=== PATIENT | female | born 1950 | race Caucasian/White ===

== ENCOUNTER → 2021-08-08 | Outpatient (CLI) | payer MEDICARE, OTHER | LOC: WOUNDCARE 13:09 | PROVIDERS: ATTEND Family Medicine | DX: L89.153 Pressure ulcer of sacral region, stage 3 (principal); L22 Diaper dermatitis; E11.622 Type 2 diabetes mellitus with other skin ulcer; E11.65 Type 2 diabetes mellitus with hyperglycemia; L03.317 Cellulitis of buttock; E44.0 Moderate protein-calorie malnutrition | CPT/HCPCS: 11042; A6197; A6212; G0463 ==

== ENCOUNTER → 2021-08-08 | Outpatient (CLI) | payer MEDICARE, OTHER ==
--- NOTE | 2021-08-08 16:03 | Diagnostic Imaging Report ---
INDICATION: Decubitus ulcers of the pelvis COMPARISON: None. FINDINGS: Frontal and lateral radiographic views of the sacrum and coccyx were obtained. SI joints are symmetric. Alignment is preserved. There is a large lucency involving the posterior soft tissues best visualized on the lateral view. This may correspond to decubitus ulcer. There is also very subtle lucency projecting over the lower sacrum. This may be on the basis of soft tissue gas as well. Area of osteolysis cannot be excluded. No unexpected radiopaque foreign bodies are seen. IMPRESSION: 1. Soft tissue gas versus area of osteolysis of the lower sacrum. Correlation with MRI is recommended. Dictated by: Dictated on workstation # [id number]
== END ==
LOC: RAD 14:47
PROVIDERS: ATTEND Family Medicine
DX: L89.153 Pressure ulcer of sacral region, stage 3 (principal)
CPT/HCPCS: 72220

== ENCOUNTER → 2021-08-15 | Outpatient (CLI) | payer MEDICARE, OTHER | LOC: WOUNDCARE 12:42 | PROVIDERS: ATTEND Family Medicine | DX: L89.153 Pressure ulcer of sacral region, stage 3 (principal); L22 Diaper dermatitis; E11.622 Type 2 diabetes mellitus with other skin ulcer; E11.52 Type 2 diabetes mellitus with diabetic peripheral angiopathy with gangrene; E11.65 Type 2 diabetes mellitus with hyperglycemia; L03.317 Cellulitis of buttock; E44.1 Mild protein-calorie malnutrition; L89.620 Pressure ulcer of left heel, unstageable | CPT/HCPCS: 11042; A6197; A6212; G0463 ==

== ENCOUNTER → 2021-08-21 | Outpatient (CLI) | payer MEDICARE, OTHER | LOC: WOUNDCARE 13:03 | PROVIDERS: ATTEND Family Medicine | DX: L89.153 Pressure ulcer of sacral region, stage 3 (principal); L22 Diaper dermatitis; E11.622 Type 2 diabetes mellitus with other skin ulcer; E11.65 Type 2 diabetes mellitus with hyperglycemia; L03.317 Cellulitis of buttock; E44.0 Moderate protein-calorie malnutrition; L89.620 Pressure ulcer of left heel, unstageable; L89.892 Pressure ulcer of other site, stage 2; E11.52 Type 2 diabetes mellitus with diabetic peripheral angiopathy with gangrene | CPT/HCPCS: 11042; A6197; A6212; G0463 ==

== ENCOUNTER → 2021-08-21 | Outpatient (CLI) | payer MEDICARE, OTHER ==
--- NOTE | 2021-08-21 18:44 | Diagnostic Imaging Report ---
PROCEDURE: MRI pelvis without contrast. TECHNIQUE: Multiplanar, multisequence MRI of the pelvis was performed without contrast. INDICATION: Decubitus ulcers without neural findings at the sacrum COMPARISON: Radiographs from 08/08/2021 FINDINGS: There is an ulceration posterior to the sacrum in the midline which appears to track to the coccyx (image 17 series 3). There is T1-weighted marrow replacement of the distal coccyx (image 15 and 16 of series 4). This may represent osteomyelitis. There is bony fusion across the coccyx and much of the sacrum. No drainable soft tissue fluid collections are identified. No other fractures are seen. There are mild degenerative changes in the sacroiliac joints bilaterally. There is no significant joint effusion. There is partially visualized heterogeneous marrow signal in the superior right femoral head. No significant joint effusion is seen. There are calcified injection granulomas in the soft tissues posteriorly. There is generalized muscular atrophy. No free fluid is appreciated in the pelvis. No masses or lymphadenopathy are seen. IMPRESSION: 1. Posterior soft tissue ulceration appears to track down to the coccyx with findings concerning for osteomyelitis of the coccyx. 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 2. Abnormal signal at the superior right femoral head. Etiology is unknown. The differential includes infectious or inflammatory processes, less likely neoplasm or osteonecrosis. Dictated by: Dictated on workstation # [id number]
== END ==
LOC: RAD 12:30
PROVIDERS: ATTEND Family Medicine
DX: L89.153 Pressure ulcer of sacral region, stage 3 (principal); L22 Diaper dermatitis; E11.622 Type 2 diabetes mellitus with other skin ulcer; E11.65 Type 2 diabetes mellitus with hyperglycemia; L03.317 Cellulitis of buttock; E44.0 Moderate protein-calorie malnutrition; L89.620 Pressure ulcer of left heel, unstageable; M43.28 Fusion of spine, sacral and sacrococcygeal region
CPT/HCPCS: 72195

== ENCOUNTER → 2021-08-28 | Outpatient (CLI) | payer MEDICARE, OTHER ==
--- NOTE | 2021-08-28 17:05 | Diagnostic Imaging Report ---
BONE SCAN WHOLE BODY INDICATION: Decubitus ulcer. Abnormal appearance of the right femoral head on recent MRI. COMPARISON: MRI of the pelvis from 08/11/2021. TECHNIQUE: Anterior and posterior whole body scintigraphic imaging was performed after the intravenous administration of 25.7 mCi of technetium-99m MDP. FINDINGS: There is abnormal asymmetric radiotracer uptake involving the right femoral head. No additional abnormal foci of radiotracer uptake. Specifically, no abnormal uptake is appreciated within the sacrum. Physiologic activity is seen within the kidneys. IMPRESSION: Abnormal appearance of the right femoral head corresponds to the MRI abnormality. 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 Consider orthopedic consultation for further management if patient has right hip pain. Dictated by: Dictated on workstation # [id number]
== END ==
LOC: CARD 11:00
PROVIDERS: ATTEND Family Medicine
DX: M86.9 Osteomyelitis, unspecified (principal); L89.90 Pressure ulcer of unspecified site, unspecified stage; R93.89 Abnormal findings on diagnostic imaging of other specified body structures
CPT/HCPCS: 78306; A9503

== ENCOUNTER → 2021-08-28 | Outpatient (CLI) | payer MEDICARE, OTHER | LOC: WOUNDCARE 11:00 | PROVIDERS: ATTEND Family Medicine | DX: L22 Diaper dermatitis (principal); E11.622 Type 2 diabetes mellitus with other skin ulcer; E11.65 Type 2 diabetes mellitus with hyperglycemia; E44.0 Moderate protein-calorie malnutrition; L89.620 Pressure ulcer of left heel, unstageable; M46.28 Osteomyelitis of vertebra, sacral and sacrococcygeal region; L89.154 Pressure ulcer of sacral region, stage 4; E11.52 Type 2 diabetes mellitus with diabetic peripheral angiopathy with gangrene | CPT/HCPCS: A6197; A6212; G0463; 99214 ==

== ENCOUNTER → 2021-09-05 | Outpatient (CLI) | payer MEDICARE, OTHER | LOC: WOUNDCARE 13:18 | PROVIDERS: ATTEND Family Medicine | DX: L22 Diaper dermatitis (principal); E11.622 Type 2 diabetes mellitus with other skin ulcer; E11.65 Type 2 diabetes mellitus with hyperglycemia; E44.0 Moderate protein-calorie malnutrition; L89.620 Pressure ulcer of left heel, unstageable; L89.154 Pressure ulcer of sacral region, stage 4; M46.28 Osteomyelitis of vertebra, sacral and sacrococcygeal region; E11.52 Type 2 diabetes mellitus with diabetic peripheral angiopathy with gangrene | CPT/HCPCS: 11042; A6212; G0463 ==

== ENCOUNTER → 2021-09-10 | Outpatient (CLI) | payer MEDICARE, OTHER ==
[2021-09-10 15:58] LABS: BILIRUBIN,URINE NEGATIVE (NEGATIVE); CLARITY,URINE CLEAR; COLOR,URINE YELLOW; GLUCOSE, URINE (UA) NEGATIVE (NEGATIVE); KETONES,URINE NEGATIVE (NEGATIVE); LEUKOCYTE ESTERASE ,URINE TRACE (NEGATIVE); NITRITE,URINE NEGATIVE (NEGATIVE); PROTEIN,URINE NEGATIVE (NEGATIVE)
[2021-09-10 16:16] LABS: BACTERIA,URINE TRACE /HPF; RENAL EPITHELIAL CELLS,URINE 0-2 /HPF; SQUAMOUS EPITHELIAL CELL,UR 0-2 /HPF
[2021-09-10 16:17] LABS: HYALINE CASTS, URINE RARE /LPF
== END ==
LOC: IHC 15:01
PROVIDERS: ATTEND Family Medicine
DX: Z13.89 Encounter for screening for other disorder (principal)
CPT/HCPCS: 81000

== ENCOUNTER → 2021-09-11 | Outpatient (CLI) | payer MEDICARE, OTHER | LOC: WOUNDCARE 12:19 | PROVIDERS: ATTEND Family Medicine | DX: L89.153 Pressure ulcer of sacral region, stage 3 (principal); E11.622 Type 2 diabetes mellitus with other skin ulcer; E11.65 Type 2 diabetes mellitus with hyperglycemia; E11.52 Type 2 diabetes mellitus with diabetic peripheral angiopathy with gangrene; E44.0 Moderate protein-calorie malnutrition; L22 Diaper dermatitis | CPT/HCPCS: 11042; A6207; A6212; G0463 ==

== ENCOUNTER → 2021-09-17 | Outpatient (CLI) | payer MEDICARE, OTHER ==
[2021-09-17 15:07] LABS: BILIRUBIN,URINE NEGATIVE (NEGATIVE); CLARITY,URINE CLEAR; COLOR,URINE YELLOW; GLUCOSE, URINE (UA) NEGATIVE (NEGATIVE); KETONES,URINE 1+ (NEGATIVE); LEUKOCYTE ESTERASE ,URINE NEGATIVE (NEGATIVE); NITRITE,URINE NEGATIVE (NEGATIVE); PROTEIN,URINE NEGATIVE (NEGATIVE)
[2021-09-17 15:16] LABS: BACTERIA,URINE TRACE /HPF; SQUAMOUS EPITHELIAL CELL,UR 0-2 /HPF; WBC,URINE 0-2 /HPF
== END ==
LOC: IHC 14:33
PROVIDERS: ATTEND Family Medicine
DX: R82.998 Other abnormal findings in urine (principal)
CPT/HCPCS: 81000

== ENCOUNTER → 2021-09-18 | Outpatient (CLI) | payer MEDICARE, OTHER ==
[2021-09-18 14:16] LABS: BASOPHILS % (AUTO) 1 % (0-10); EOSINOPHILS % (AUTO) 1 % (0-10); HEMATOCRIT 36 % (35-52); HEMOGLOBIN 11.6 g/dL (11.5-16.0); LYMPHOCYTES # (AUTO) 2.4 X 10^3 (1.0-4.0); LYMPHOCYTES % (AUTO) 32 % (12-44); MEAN CORPUSCULAR HEMOGLOBIN 32 pg (25-34); MEAN CORPUSCULAR HGB CONC 32 g/dL (32-36); MEAN CORPUSCULAR VOLUME 98 fL (80-99); MEAN PLATELET VOLUME 10.7 fL (9.0-12.2); MONOCYTES # (AUTO) 0.4 X 10^3 (0.0-1.0); MONOCYTES % (AUTO) 6 % (0-12); NEUTROPHILS # (AUTO) 4.5 X 10^3 (1.8-7.8); NEUTROPHILS % (AUTO) 60 % (42-75); PLATELET COUNT 342 10^3/uL (130-400); WHITE BLOOD COUNT 7.4 10^3/uL (4.3-11.0)
[2021-09-18 14:17] LABS: EOSINOPHILS # (AUTO) 0.1 10^3/uL (0.0-0.3)
[2021-09-18 14:49] LABS: BILIRUBIN,TOTAL 0.2 MG/DL (0.1-1.0); CALCIUM 9.8 MG/DL (8.5-10.1); CREATININE SERUM 2.03 MG/DL (0.60-1.30); POTASSIUM 3.6 MMOL/L (3.6-5.0)
[2021-09-18 14:50] LABS: ALBUMIN 4.1 GM/DL (3.2-4.5); TOTAL PROTEIN 7.1 GM/DL (6.4-8.2)
== END ==
LOC: IHC 13:06
PROVIDERS: ATTEND Family Medicine
DX: E11.9 Type 2 diabetes mellitus without complications (principal); J18.9 Pneumonia, unspecified organism
CPT/HCPCS: 80053; 85025

== ENCOUNTER → 2021-09-25 | Outpatient (CLI) | payer MEDICARE, OTHER | LOC: WOUNDCARE 15:32 | PROVIDERS: ATTEND Family Medicine | DX: S90.821A Blister (nonthermal), right foot, initial encounter (principal); L89.153 Pressure ulcer of sacral region, stage 3; L22 Diaper dermatitis; E11.622 Type 2 diabetes mellitus with other skin ulcer; E11.65 Type 2 diabetes mellitus with hyperglycemia; E11.52 Type 2 diabetes mellitus with diabetic peripheral angiopathy with gangrene; E44.1 Mild protein-calorie malnutrition | CPT/HCPCS: 11042; A6197; A6212; G0463 ==

== ENCOUNTER → 2021-10-03 | Outpatient (CLI) | payer MEDICARE, OTHER | LOC: WOUNDCARE 12:50 | PROVIDERS: ATTEND Family Medicine | DX: L22 Diaper dermatitis (principal); E11.622 Type 2 diabetes mellitus with other skin ulcer; E11.65 Type 2 diabetes mellitus with hyperglycemia; E44.0 Moderate protein-calorie malnutrition; L89.153 Pressure ulcer of sacral region, stage 3; S90.821A Blister (nonthermal), right foot, initial encounter; E11.52 Type 2 diabetes mellitus with diabetic peripheral angiopathy with gangrene | CPT/HCPCS: 11042; A6212; G0463 ==

== ENCOUNTER → 2021-10-05 | Outpatient (CLI) | payer MEDICARE, OTHER ==
[2021-10-05 14:59] LABS: BILIRUBIN,TOTAL 0.2 MG/DL (0.1-1.0); CALCIUM 10.4 MG/DL (8.5-10.1); CREATININE SERUM 1.44 MG/DL (0.60-1.30); POTASSIUM 4.2 MMOL/L (3.6-5.0); TOTAL PROTEIN 6.9 GM/DL (6.4-8.2)
== END ==
LOC: IHC 13:36
PROVIDERS: ATTEND Family Medicine
DX: E11.65 Type 2 diabetes mellitus with hyperglycemia (principal)
CPT/HCPCS: 80053

== ENCOUNTER → 2021-10-10 | Outpatient (CLI) | payer MEDICARE, OTHER | LOC: WOUNDCARE 12:46 | PROVIDERS: ATTEND Family Medicine | DX: L22 Diaper dermatitis (principal); E11.622 Type 2 diabetes mellitus with other skin ulcer; E11.65 Type 2 diabetes mellitus with hyperglycemia; E44.0 Moderate protein-calorie malnutrition; L89.153 Pressure ulcer of sacral region, stage 3; S90.821A Blister (nonthermal), right foot, initial encounter; E11.52 Type 2 diabetes mellitus with diabetic peripheral angiopathy with gangrene | CPT/HCPCS: 11042; A6021; A6212; G0463 ==

== ENCOUNTER → 2021-10-17 | Outpatient (CLI) | payer MEDICARE, OTHER | LOC: WOUNDCARE 12:47 | PROVIDERS: ATTEND Family Medicine | DX: E11.52 Type 2 diabetes mellitus with diabetic peripheral angiopathy with gangrene (principal); I96 Gangrene, not elsewhere classified; L89.153 Pressure ulcer of sacral region, stage 3; E11.622 Type 2 diabetes mellitus with other skin ulcer; E11.65 Type 2 diabetes mellitus with hyperglycemia; L22 Diaper dermatitis; E44.0 Moderate protein-calorie malnutrition | CPT/HCPCS: 11042; A6212; G0463 ==

== ENCOUNTER → 2021-10-24 | Outpatient (CLI) | payer MEDICARE, OTHER | LOC: WOUNDCARE 12:59 | PROVIDERS: ATTEND Family Medicine | DX: E11.622 Type 2 diabetes mellitus with other skin ulcer (principal); L22 Diaper dermatitis; E11.65 Type 2 diabetes mellitus with hyperglycemia; E44.0 Moderate protein-calorie malnutrition; L89.153 Pressure ulcer of sacral region, stage 3 | CPT/HCPCS: A6212; G0463; 99213 ==

== ENCOUNTER → 2021-10-31 | Outpatient (CLI) | payer MEDICARE, OTHER | LOC: WOUNDCARE 13:03 | PROVIDERS: ATTEND Family Medicine | DX: L22 Diaper dermatitis (principal); E11.622 Type 2 diabetes mellitus with other skin ulcer; E11.65 Type 2 diabetes mellitus with hyperglycemia; E44.0 Moderate protein-calorie malnutrition; L89.153 Pressure ulcer of sacral region, stage 3; E11.52 Type 2 diabetes mellitus with diabetic peripheral angiopathy with gangrene | CPT/HCPCS: A6212; G0463; 99213 ==

== ENCOUNTER → 2021-11-07 | Outpatient (CLI) | payer MEDICARE, OTHER | LOC: WOUNDCARE 13:01 | PROVIDERS: ATTEND Family Medicine | DX: L22 Diaper dermatitis (principal); E11.622 Type 2 diabetes mellitus with other skin ulcer; E11.65 Type 2 diabetes mellitus with hyperglycemia; E44.1 Mild protein-calorie malnutrition; L89.153 Pressure ulcer of sacral region, stage 3 | CPT/HCPCS: A6212; G0463; 99213 ==